=== PATIENT | female | born 1985 | race Caucasian/White ===

== ENCOUNTER 2020-03-02 16:35 | Outpatient (REF) | payer OTHER, SELFPAY ==
--- NOTE | 2020-03-02 | US_ITS ---
EXAMINATION: US RETROPERITONEAL LIMITED (RENAL ONLY) CLINICAL INFORMATION: Renal stone. COMPARISON: Renal ultrasound 09/05/2019 and 06/03/2019. X-ray abdomen KUB 08/21/2019 and 07/31/2019. MRI abdomen 12/29/2015. CT abdomen and pelvis 12/09/2015. TECHNIQUE: Real-time imaging of the kidneys. FINDINGS: RIGHT KIDNEY: 11.1 x 4.5 x 4.8 cm (SAG x AP x TRV). The kidney is normal in size, contour, and echogenicity. Renal cortical thickness is normal. No calculi or focal parenchymal lesions. No hydronephrosis. LEFT KIDNEY: 11.5 x 5.7 x 5.3 cm (SAG x AP x TRV). The kidney is normal in size, contour, and echogenicity. Renal cortical thickness is normal. No calculi or focal parenchymal lesions. No hydronephrosis. US/US renal BI IMPRESSION: Unremarkable renal ultrasound.
== END 2020-03-02 16:36 | disposition home or self-care (01) ==
LOC: HO.US 16:35
PROVIDERS: PCP Internal Medicine; Visit Provider Urology
DX: N20.0 Calculus of kidney (principal)
CPT/HCPCS: 76775

== ENCOUNTER → 2020-05-04 09:56 | Outpatient (BNVA) | payer OTHER, SELFPAY | PROVIDERS: PCP Internal Medicine; Referring Provider Internal Medicine; Visit Provider Urology | DX: Z76.89 Persons encountering health services in other specified circumstances (principal) ==

== ENCOUNTER 2021-05-13 09:00 | Outpatient (RCR) | payer OTHER, SELFPAY ==
--- NOTE | 2021-01-18 16:01 | MHC.SP.ADU ---
Referring provider: Dr. Alexsander Perez Reason for Referral: vocal hoarseness Type of Treatment: 24244 Behavioral and Qualitative Analysis of Voice and Resonance Date of Plan of Treatment: 01/18/21 Onset of Symptoms/Illness: 05/07/19 Medical Diagnosis: Vocal cord nodules Primary Speech Language Diagnosis: R49.0 Dysphonia History Donna is a 35 year old female who was referred for a voice evaluation by her ear, nose, and throat MD, Dr. Alexsander Perez. Donna reported a longstanding history of vocal dysfunction which first began in 2006 when she was with her oldest child. She described vocal hoarseness and pitch breaks at that time but reported that her vocal quality resolved on its own. She then reported that from May-October 2008 she had no voice . Once again, Donna described that her voice eventually returned to its baseline. No medical intervention was received during those instances. Donna was evaluated by Dr. Perez in May 2019 at which time her voice had returned to being raspy, hoarse, and strained. She reported that a laryngoscopy was performed at that time and revealed vocal cord nodules. 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 However, with no longer working at her daycare and beginning exercise and healthy eating habits from June through September 2020, Donna indicated that her vocal function had greatly improved. By the time she returned for a follow-up visit with Dr. Perez on 10/28/20, Donna reported that her vocal function was nearly back to normal . Presently, Donna reported that she feels decreased breath support and that her voice has a monotone quality. Donna described being under physical and emotional stress recently, leading to eating unhealthier foods. Donna described increased GERD and phlegm production, especially in the morning and late at night. She reported the use of frequent coughing/throat clearing to clear phlegm. Donna was prescribed Omeprazole for GERD though denied currently taking the medication as she reported previous success with reducing GERD with diet and exercise. Medical History: Acid Reflux Diabetes Other: Diabetes, history of kidney stones with removal in 2016, GERD, history of gallstones s/p gallbladder removal surgery in 2016` Medication List: Mikal Skelton Recent Hospitalizations: No Respiratory Needs: Room Air Patient Orientation: Alert & Oriented x 4 Social History: Employment Status: Self-Employed Current Living Situation: Pt resides in [place] with her and 2 children. She owns a home daycare which closed during the onset of the COVID-19 pandemic. Donna reported that she will be re-opening soon and hopes to care for primarily infants, which will reduce her vocal use/strain. Assistive Devices in use: None Past Speech Language Therapy: Donna participated in 1-2 voice therapy sessions at [facility] prior to the onset of the COVID-19 pandemic. Donna reported that she completed the vocal function home exercises provided and noticed an improvement in the quality of her voice. Other Therapies Seen in Current Calendar Year: None Other: Donna last received voice therapy in June 2019. Swallowing History: Dysphagia Specific: Within Functional Limits Comments: Pre-eval Risk for Aspiration: None Reported Speech, Language, Cognition difficulties: Voice Quality of Life: Donna reported that as a result of her voice difficulties, she is no longer able to sing while in [employer]. Patient Stated Goal of Speech-Language Therapy: To improve vocal function. Assessment Informal Voice Assessment: Voice Loudness: Normal Voice Nasal Resonance: Normal Voice Oral Resonance: Normal Voice Phonatory-based Quality: Hoarse Voice Pitch: Limited Variation Clinical Impression: During functional conversation and reading tasks, Donna demonstrated slight hoarseness as perceived by this trained but unfamiliar clinician. No instances of pitch breaks/loss of voice were observed during the evaluation. Donna did demonstrate reduced maximum phonation time as expected for her age; Donna was able to prolong a vowel for an average of 5.9 seconds, though the average maximum phonation time for females is 15-25 seconds ([facility]). Donna also demonstrated difficulty with the production of ascending and descending pitch glides as she presented with limited variations in pitch. Donna completed the Voice Handicap Index (VHI), which is a rating scale that uses a 5 point system where 0=never and 4= always, to rate statements about vocal dysfunction and its impact on daily life. The VHI measures the patient's perception of the impact of his or her voice disorder. Based upon Donna's responses, her score of 62 indicates her perception of a moderate/severe voice disorder (scores of 31-60 are associated with a moderate disorder and scores of 60-120 are associated with a severe disorder). Impressions and Recommendations Summary: Donna presents with mild dysphonia characterized by intermittent hoarseness and reduced breath support during vocalization. Donna reported a longstanding history of intermittent dysphonia for the past 10+ years with a recent diagnosis of vocal cord nodules (May 2019). Donna would benefit from skilled voice therapy for teaching of vocal hygiene strategies, vocal function exercises, and compensatory strategies to reduce vocal fatigue in order to improve Donna's vocal quality and quality of life. Impact on Daily Function/Activity Limitations: Daily Activities: Moderate Interpersonal Interactions: Moderate Employment: Moderate Community: Moderate Prognosis for Improvement: Good Comment: Donna is highly motivated to improve her vocal function and its impact on her day to day life. Recommendation for Speech Therapy: Frequency/Duration: 1x/week x6 weeks Time to Reassess: 6 weeks Short Term Goals: Goal # : 1.1 Donna will recall/utilize vocal hygiene strategies with 90% accuracy. Goal Status: New Goal Goal# : 1.2 Donna will complete vocal function exercises with 80% accuracy. Goal Status: New Goal Goal # : 1.3 Donna will recall/utilize compensatory strategies to conserve vocal function, especially while working in her home daycare, with 90% accuracy. Goal Status: New Goal Goal # : 2.1 Donna will complete diaphragmatic breathing exercises with 90% accuracy. Goal Status: New Goal Recommended Referrals to be Discussed with Primary Care Provider: ENT Consult Completion of another laryngoscopy is recommended to assess the current status of pt's vocal cord nodules. Patient Education: Completed: Yes Patient/Caregiver Education: Described Results of Evaluation Patient expressed understanding of evaluation Patient agrees with goals and treatment plan Comments/Barriers to Learning: None It was a pleasure working with Donna. Please do not hesitate to contact me at or [email or web address] with any questions or concerns. Gauge Checker Clinican/Clinical Fellow: No Supervisory Statement: N/A Speech Language Pathologist: Jacy Stahl M.A., CCC-COTTON GINNER HELPER
== END 2021-06-09 13:08 | disposition home or self-care (01) ==
LOC: HO.SH 09:00
PROVIDERS: Visit Provider Otolaryngology
DX: R49.0 Dysphonia (principal)
CPT/HCPCS: 92507; 92524

== ENCOUNTER 2021-05-19 12:27 | Outpatient (REF) | payer OTHER, SELFPAY ==
--- NOTE | ~2021-05-19 | US_ITS ---
EXAMINATION: US RETROPERITONEAL LIMITED (RENAL ONLY) CLINICAL INFORMATION: Personal history of urinary calculi. COMPARISON: Renal ultrasound 03/02/2020 and 09/05/2019. X-ray KUB 08/21/2019 and 07/31/2019. MRI abdomen 12/29/2015. CT abdomen and pelvis 01/07/2013. TECHNIQUE: Real-time imaging of the kidneys. FINDINGS: RIGHT KIDNEY: 10.4 x 5.1 x 5.9 cm (SAG x AP x TRV). The kidney is normal in size, contour, and echogenicity. Renal cortical thickness is normal. No calculi or focal parenchymal lesions. No hydronephrosis. LEFT KIDNEY: 10.9 x 4.9 x 6.1 cm (SAG x AP x TRV). The kidney is normal in size, contour, and echogenicity. Renal cortical thickness is normal. No calculi or focal parenchymal lesions. No hydronephrosis. US/US renal BI IMPRESSION: Normal renal ultrasound.
== END 2021-05-19 12:28 | disposition home or self-care (01) ==
LOC: HO.US 12:27
PROVIDERS: Visit Provider Urology
DX: Z87.442 Personal history of urinary calculi (principal)
CPT/HCPCS: 76775

== ENCOUNTER 2022-05-04 16:33 | Outpatient (REF) | payer OTHER, SELFPAY ==
--- NOTE | ~2022-05-04 | US_ITS ---
EXAMINATION: US RETROPERITONEAL LIMITED (RENAL ONLY) CLINICAL INFORMATION: Calculus of kidney. COMPARISON: Renal ultrasound 05/19/2021 TECHNIQUE: Real-time imaging of the kidneys. FINDINGS: RIGHT KIDNEY: 11.0 x 5.1 x 5.4 cm (SAG x AP x TRV). The kidney is normal in size, contour, and echogenicity. Renal cortical thickness is normal. No focal parenchymal lesions or hydronephrosis. Several echogenic, shadowing nonobstructing right renal calculi are present, the largest measuring 8mm in the right mid kidney. LEFT KIDNEY: 12.3 x 6.0 x 5.9 cm (SAG x AP x TRV). The kidney is normal in size, contour, and echogenicity. Renal cortical thickness is normal. No calculi or focal parenchymal lesions. No hydronephrosis. There is a 3 mm echogenic focus in the left mid kidney without shadowing, possibly a vascular calcification or nonobstructing calculus. US/US renal BI IMPRESSION: Right renal calculi, the largest 8mm. Possible 3 mm left renal calculus. No hydronephrosis.
== END 2022-05-04 16:34 | disposition home or self-care (01) ==
LOC: HO.US 16:33
DX: N20.0 Calculus of kidney (principal)
CPT/HCPCS: 76775

== ENCOUNTER → 2022-05-19 09:47 | Outpatient (BNVA) | payer OTHER, SELFPAY | PROVIDERS: Visit Provider Nurse Practitioner Family | DX: Z13.89 Encounter for screening for other disorder (principal) ==

== ENCOUNTER 2022-05-27 16:35 | Outpatient (REF) | payer OTHER, SELFPAY ==
--- NOTE | ~2022-05-27 | CT_ITS ---
EXAMINATION: CT KIDNEY STONES CLINICAL INFORMATION: Calculus of kidney. Bilateral flank pain. COMPARISON: CT abdomen and pelvis without contrast 12/09/2015. Ultrasound retroperitoneal 05/04/2022. TECHNIQUE: 5 mm thin axial and and reformatted 3 mm thin sagittal and coronal images of the lumbar spine were obtained without contrast. DLP: 443 mGy-cm This CT examination was performed using dose optimization technique as appropriate, variously including the following: Automated exposure control Adjustment of MA and/or KV according to patient size(this includes techniques or standardized protocols for targeted exams where dose is matched to indication/reason for exam; extremities or head. Use of iterative reconstruction techniques. FINDINGS: Lungs: The lung bases are clear. Heart size is normal. Liver, Ducts And Gallbladder: The liver is homogeneous in density, normal contour and density. No focal lesion or intrahepatic ductal dilatation seen. The gallbladder has been surgically removed. Spleen: Unremarkable. Pancreas: Unremarkable. Bilateral Adrenal Glands: Unremarkable. Kidneys And Ureters: Both kidneys are normal size, shape and position. A 2 mm nonobstructive calculi is seen in the lower pole of the left kidney and 2 mm two radiopaque calculi in upper pole of right kidney. No caliectasis or hydronephrosis seen. No caliectasis or hydronephrosis seen. GI Tract: There is scattered stool in the right colon without distention. The rest of the colon is unremarkable. The small bowel loops are unremarkable. The appendix is normal caliber. No inflammatory process or free fluid seen. Lymphovascular Structures: The abdominal aorta is of normal caliber. No abnormal size retroperitoneal lymph nodes seen. Abdominal Wall: There is a small umbilical hernia containing intraperitoneal fat. Pelvis: The bladder is nondistended and appears unremarkable. The uterus is anteverted and appears unremarkable. There is no free fluid. No abnormal pelvic or inguinal lymph nodes. CT/CT kidney stone IMPRESSION: Nonobstructive bilateral radiopaque renal calculi without caliectasis or hydronephrosis. The findings are concordant with ultrasound report of 05/04/2022.
== END 2022-05-27 16:36 | disposition home or self-care (01) ==
LOC: HO.CT 16:35
PROVIDERS: Visit Provider Nurse Practitioner Family
DX: N20.0 Calculus of kidney (principal)
CPT/HCPCS: 74176

== ENCOUNTER → 2022-06-10 14:31 | Outpatient (BNVA) | payer OTHER, SELFPAY | PROVIDERS: Visit Provider Nurse Practitioner Family | DX: Z13.89 Encounter for screening for other disorder (principal) ==

== ENCOUNTER 2022-12-01 16:33 | Outpatient (REF) | payer OTHER, SELFPAY ==
--- NOTE | ~2022-12-01 | US_ITS ---
EXAMINATION: US RETROPERITONEAL LIMITED (RENAL ONLY) CLINICAL INFORMATION: Calculus of kidney. COMPARISON: CT kidney stone 05/27/2022. Ultrasound retroperitoneal limited (renal only) 05/04/2022 and 05/19/2021. X-ray abdomen KUB 08/21/2019 and 07/31/2019. MRI abdomen without contrast 12/29/2015. TECHNIQUE: Real-time imaging of the kidneys. FINDINGS: RIGHT KIDNEY: 11.3 x 5.0 x 6.0 cm (SAG x AP x TRV). The kidney appears unremarkable in size, contour, and echogenicity. Renal cortical thickness is normal. No focal parenchymal lesion or hydronephrosis appreciated. The technologist dalal a 0.4 cm, upper pole subtle focus of increased echogenicity with no associated posterior shadowing. LEFT KIDNEY: 11.8 x 6.7 x 5.6 cm (SAG x AP x TRV). The kidney appears unremarkable in size, contour, and echogenicity. Renal cortical thickness is normal. No focal parenchymal lesion or hydronephrosis appreciated. The technologist dalal a 0.4 cm, mid renal, subtle focus of increased echogenicity with no associated posterior shadowing. US/US renal BI IMPRESSION: The technologist dalal bilateral 0.4 cm foci of increased echogenicity with no associated posterior shadowing.. Differential diagnosis includes, but is not limited to, normal renal sinus fat, nonobstructing stones, etc.
== END 2022-12-01 16:34 | disposition home or self-care (01) ==
LOC: HO.US 16:33
PROVIDERS: Visit Provider Nurse Practitioner Family
DX: N20.0 Calculus of kidney (principal)
CPT/HCPCS: 76775

== ENCOUNTER 2022-12-16 10:27 | Outpatient (AMB) | payer OTHER, SELFPAY ==
--- NOTE | 2022-12-16 10:27 | MHC.OFFVIS ---
Intake Intake Visit Reasons: 6m follow up/US(set) Intake Note: Patient presents for follow up kidney stone/ultrasound (imaging 12/01) Urology Medications: Vitamin B6 Blood Thinner: none Filter Cleaner Required: No Allergies metformin [METFORMIN] Allergy (Intermediate, Verified 12/16/22 11:10) NAUSEA/VOMITING Medication List - Last Reconciled 12/16/22 by KHUSHBU Lovell blood-glucose meter As directed norethindrone-e.estradiol-iron 1-20(5)/1-30(7) /1mg-35mcg (9) (Tri-Legest Fe) 1 tab PO DAILY pen needle, diabetic (BD Ultra-Fine Short Pen Needle) As directed pyridoxine (vitamin B6) 100 mg PO DAILY 90 days sitagliptin phosphate 100 mg PO DAILY HPI HPI Comments History of Present Illness Details Donna is a pleasant 37-year-old female patient. She has a past medical history of gallstones, GERD, nephrolithiasis, polycystic ovarian disease, and low back pain. She is being followed up on today via telehealth regarding her history of nephrolithiasis. When asked patient reports to be doing well. Recent renal imaging results reviewed with the patient today. Bilateral kidneys with no lesions or hydronephrosis noted. Bilateral 4 mm stones noted. When asked she does report intermittent episodes of bilateral flank pain however reports pain to be infrequent. She otherwise denies urinary urgency, urinary frequency, incontinence, dysuria, hematuria, fever, and or chills. Discussed survalliance monitoring versus obtaining CT KUB/KUB for further assessment evaluation. Discussed importance of drinking adequate amount of fluid daily. Patient reports complaince with Vit B6 and adding one ounce of lemon juice to water daily. [facility] Medical History Gallstone GERD (gastroesophageal reflux disease) Gestational diabetes History of renal calculi Low back pain Polycystic ovarian disease Renal calculi Family History Father No problems noted. Mother No problems noted. Paternal Grandfather Diabetes mellitus HTN (hypertension) Paternal Aunt Breast cancer Review of Systems Const Reports as per HPI Eyes Reports no additional complaints ENT Reports no additional complaints Card Reports no additional complaints Resp Reports no additional complaints GI Reports as per HPI Reports as per HPI Musc Reports as per HPI Neuro Reports no additional complaints Psych Reports no additional complaints Endo Reports no additional complaints Physical Exam Const General: cooperative Orientation/consciousness: patient oriented x3 Resp Effort & Inspection: able to speak in complete sentences Neuro General: patient oriented x3 Psych Speech and movement: Clear speech present Attitude: cooperative Thought process: Normal thought process present Thought content: Normal thought content present Insight: Fair insight present (Psych) Judgement: Fair judgement present (Psych) Results Reviewed Results Reviewed: Date of Service: 12/01/22 EXAMINATION: US RETROPERITONEAL LIMITED (RENAL ONLY) FINDINGS: RIGHT KIDNEY: 11.3 x 5.0 x 6.0 cm (SAG x AP x TRV). The kidney appears unremarkable in size, contour, and echogenicity. Renal cortical thickness is normal. No focal parenchymal lesion or hydronephrosis appreciated. The technologist dalal a 0.4 cm, upper pole subtle focus of increased echogenicity with no associated posterior shadowing. LEFT KIDNEY: 11.8 x 6.7 x 5.6 cm (SAG x AP x TRV). The kidney appears unremarkable in size, contour, and echogenicity. Renal cortical thickness is normal. No focal parenchymal lesion or hydronephrosis appreciated. The technologist dalal a 0.4 cm, mid renal, subtle focus of increased echogenicity with no associated posterior shadowing. IMPRESSION: ? The technologist dalal bilateral 0.4 cm foci of increased echogenicity with no associated posterior shadowing.. Differential diagnosis includes, but is not limited to, normal renal sinus fat, nonobstructing stones, etc. Assessment & Plan Assessment & Plan (1) Renal calculi: Code(s): N20.0 - Calculus of kidney Plan Recent renal imaging reviewed with the patient today; bilateral 4 mm non obstructing stones Discussed, instructed, and educated on the importance of drinking adequate amount of fluid daily. Continue vitamin B6 daily Add one once of lemon juice to water daily. Discussed surveillance imaging versus obtaining CT KUB/KUB for further assessment evaluation Renal ultrasound in 6 months. Follow-up in office in 6 months with imaging to be completed prior; or sooner with any issues, concerns, and or questions. Discussed if symptoms continue and or persist to call the office and or seek medical treatment. Orders: Orders US renal BI 6 Months N20.0 - Calculus of kidney Patient Instructions: The patient had an opportunity to ask questions regarding the treatment plan. All questions were answered. Physical exam, labs, and imaging were discussed and reviewed in detail. As well as risks, benefits, and discussion of treatment choices. No major barriers to understanding were identified. The patient expressed understanding and agreement with the above treatment plan. The patient was made aware they should contact our office by phone for worsening of their current condition, the appearance of new symptoms, or with any questions or concerns. Compliance is encouraged with any medications and follow up testing that is ordered. It is a privilege to be allowed the opportunity to participate in? your urological care.? Again, if you have any questions or concerns If you have any questions or concerns please do not hesitate to contact me. The office is [phone]. This note is constructed using voice recognition software. While every effort has been made to ensure accuracy commercial analyst errors may have been included. Yours sincerely, KHUSHBU Lovell Telehealth Telehealth Location of provider rendering services: practice address Location of patient: address on file Patient Identification confirmed using: Name, : Yes Telehealth method: voice only Patient verbally consented to treatment: Yes Patient verbally consented to billing insurance company: Yes Patient informed of any privacy concerns related to visit: Yes Minutes spent on Phone/Video with Pt.: 15 Coding Level of Care Code Tele Est Pt Level 3 (74428) Diagnoses Renal calculi N20.0
== END 2022-12-16 16:08 | disposition home or self-care (01) ==
LOC: HO.HUSH 10:27
PROVIDERS: PCP Internal Medicine; Visit Provider Nurse Practitioner Family
DX: N20.0 Calculus of kidney (principal)
CPT/HCPCS: 99213

== ENCOUNTER → 2022-12-16 10:27 | Outpatient (BNVA) | payer OTHER, SELFPAY | PROVIDERS: PCP Internal Medicine; Visit Provider Nurse Practitioner Family ==

== ENCOUNTER 2023-07-07 16:32 | Outpatient (REF) | payer OTHER, SELFPAY ==
--- NOTE | ~2023-07-07 | US_ITS ---
EXAMINATION: US RETROPERITONEAL LIMITED (RENAL ONLY) CLINICAL INFORMATION: Calculus of kidney. COMPARISON: None available. TECHNIQUE: Renal ultrasound was performed. FINDINGS: RIGHT KIDNEY: 11.2 x 5.1 x 6.7 cm (SAG x AP x TRV). The kidney is normal in size, contour, and echogenicity. Renal cortical thickness is normal. No focal parenchymal lesions. At the upper pole of the right kidney there is a 3 mm echogenic focus seen with twinkle artifact consistent with a nonobstructing calculus, unchanged from prior. No hydronephrosis. LEFT KIDNEY: 10.6 x 4.6 x 4.8 cm (SAG x AP x TRV). The kidney is normal in size, contour, and echogenicity. Renal cortical thickness is normal. No calculi or focal parenchymal lesions. No hydronephrosis. US/US renal BI IMPRESSION: Nonobstructing 3 mm right upper pole renal calculus.
== END 2023-07-07 16:33 | disposition home or self-care (01) ==
LOC: HO.US 16:32
PROVIDERS: PCP Registered Nurse; Visit Provider Nurse Practitioner Family
DX: N20.0 Calculus of kidney (principal)
CPT/HCPCS: 76775

== ENCOUNTER 2023-11-14 17:00 | Outpatient (REF) | payer OTHER, SELFPAY ==
--- NOTE | ~2023-11-14 | CT_ITS ---
EXAMINATION: CT ABDOMEN AND PELVIS WITHOUT CONTRAST CLINICAL INFORMATION: Renal calculus. COMPARISON: CT scans dating between May 27, 2022 and December 04, 2009. TECHNIQUE: Multidetector volumetric imaging was performed from the superior aspect of the liver through the pubic symphysis. Sagittal and coronal reformatted images were obtained on the technologist's workstation. This CT examination was performed using dose optimization techniques as appropriate, variously including the following: *Automated exposure control *Adjustment of mA and/or kV according to patient size (this includes techniques or standardized protocols for targeted exams where dose is matched to indication/reason for exam; i.e. extremities or head) *Use of iterative reconstruction technique DLP: 0.35 mGy-cm FINDINGS: LUNG BASES: The lung bases appear clear, with no evidence of inflammation or nodules. LIVER, GALLBLADDER, AND BILIARY TREE: The liver appears unremarkable in size, shape, and attenuation. No focal hepatic lesion or biliary ductal dilatation is appreciated. Status post cholecystectomy. PANCREAS: Unremarkable SPLEEN: Unremarkable ADRENAL GLANDS: Unremarkable KIDNEYS AND URETERS: Bilateral, 2 mm or less, nonobstructing renal collecting system and/or renal papillary calcifications. No evidence of hydronephrosis or hydroureter on either side. The kidneys otherwise appear unremarkable in size, shape, and attenuation. BLADDER: Unremarkable GASTROINTESTINAL TRACT: The small and large bowel appear unremarkable. No diverticulosis. Normal-appearing distal ileum and vermiform appendix. ABDOMINAL WALL: No significant hernia is appreciated. LYMPH NODES: No evidence of adenopathy by size criteria. VASCULAR: Unremarkable PELVIC VISCERA: Unremarkable OSSEOUS STRUCTURES: Unremarkable CT/CT kidney stone IMPRESSION: Bilateral, 2 mm or less, nonobstructing renal collecting system and/or renal papillary calcifications. No evidence of hydronephrosis or hydroureter on either side. Electronically signed by: Roberto Vale MD 12/31/2023 01:03 PM EDT
== END 2023-11-14 17:01 | disposition home or self-care (01) ==
LOC: HO.CT 17:00
PROVIDERS: Visit Provider Nurse Practitioner Family
DX: N20.0 Calculus of kidney (principal); R10.9 Unspecified abdominal pain
CPT/HCPCS: 74176

== ENCOUNTER 2023-12-01 11:12 | Outpatient (AMB) | payer OTHER, SELFPAY ==
--- NOTE | 2023-12-01 11:35 | A.OFFVIS_ITS ---
Intake Visit Reasons: 6M US(CT 11/13) Allergies metformin [METFORMIN] Allergy (Intermediate, Verified 12/16/22 11:10) NAUSEA/VOMITING HPI Comments Details: Donna is a pleasant female. She is a patient of Dr. Farias. She seen for the following urologic conditions - nephrolithiasis Reviewed CT scan imaging 2 punctate stones on right side upper pole Has been having occasional flank plain bilateral Naprosyn 500 mg provided to use as needed Encouraged lemon water 70-80 oz per day Remains compliant with B6 12 month follow-up imaging PENDING SALE TO [facility] Medical History Gallstone GERD (gastroesophageal reflux disease) Gestational diabetes History of renal calculi Low back pain Polycystic ovarian disease Renal calculi Family History Father No problems noted. Mother No problems noted. Paternal Grandfather Diabetes mellitus HTN (hypertension) Paternal Aunt Breast cancer Review of Systems Const Denies chills and Denies fever(s) Card Reports no additional complaints and Denies syncope Resp Denies cough GI Denies abdominal pain and Denies heartburn Reports as per HPI and Denies change in libido Neuro Denies syncope Psych Denies change in libido Endo Denies change in libido Physical Exam Const General: cooperative, healthy appearing, comfortable and no acute distress Orientation/consciousness: patient oriented x3 HEENT Face and sinus: Yes normal facial exam Mouth: moist mucous membranes Neck Neck: Yes normal visual inspection, Yes full ROM and Yes trachea midline Chest Chest palpation & inspection: normal inspection of the chest Resp Effort & Inspection: normal respiratory effort, able to speak in complete sentences and no respiratory distress GI Inspection: Yes normal to inspection Back/Spine/Pelvis Cervical Spine: normal cervical lordosis Thoracic/Lumbar Spine: thoracic and lumbar spine normal to inspection Skin General skin exam: no rashes or lesions noted Neuro General: patient oriented x3, gait normal, tone normal and moves all extremities Extrem General: Yes normal to inspection and Yes capillary refill normal Assessment & Plan Assessment & Plan (1) Renal calculi: Code(s): N20.0 - Calculus of kidney Category: Medical Plan Twelve month follow-up renal imaging Orders: Orders US renal BI 12 Months N20.0 - Calculus of kidney Medications: New naproxen (Naprosyn) To use with kidney stone pain 500 mg PO Q12H PRN 30 tabs 0RF pain 30 days N20.0 - Calculus of kidney Patient Instructions: Imaging studies, laboratory and physical exam results were discussed and reviewed in detail. No major barriers to patient understanding were identified. An opportunity to ask questions regarding the treatment plan was provided. All questions were answered. The patient expressed understanding and agreement with the above treatment plan. The patient is aware they should contact our office by phone for worsening of their current condition or the appearance of new urologic symptoms. Compliance is encouraged with any medications and followup testing that is ordered. It is a privilege to participate in the urologic care of your patient. If you have any questions or concerns regarding treatment for the above conditions, or other urologic issues, please do not hesitate to contact me. The office telephone contact is [phone]. This note is constructed using voice recognition software. While every effort has been made to ensure accuracy senior water/wastewater engineer errors may have been included. Yours sincerely, Dr Ridge Madrigal MD, DINA [facility] - Urology Providers of Expert, Compassionate Care for the Genitourinary System Coding Level of Care Code Est Pt Level 4 (87169) Diagnoses Renal calculi N20.0
== END 2023-12-01 11:52 | disposition home or self-care (01) ==
PROVIDERS: PCP Registered Nurse; Visit Provider Urology
DX: N20.0 Calculus of kidney (principal)
CPT/HCPCS: 99214

== ENCOUNTER → 2023-12-01 11:12 | Outpatient (BNVA) | payer OTHER, SELFPAY | PROVIDERS: PCP Registered Nurse; Visit Provider Urology | DX: N20.0 Calculus of kidney (principal) | CPT/HCPCS: 99212 ==

== ENCOUNTER 2024-11-28 10:24 | Outpatient (REF) | payer OTHER, SELFPAY ==
--- NOTE | ~2024-11-28 | US_ITS ---
CLINICAL HISTORY: N20.0 - Calculus of kidney US of kidneys Comparison: US/ND/SR - US RENAL BI - 07/07/23 17:06 EST Findings: Right kidney is normal in size, echogenicity and morphology, 11.7 cm in length. 3 mm calculus in the upper pole, no hydronephrosis or focal lesion. Left kidney is normal in size, echogenicity and morphology, 12.5 cm in length. 3 mm calculus in the lower pole, mild pelviectasis, no calyceal dilatation. No focal lesion. Limited color Doppler demonstrates unremarkable bilateral blood flow. Impression: Nonobstructing bilateral nephrolithiasis. This document has been electronically signed by: Nohelia Oh MD on 11/28/2024 15:01:07
== END 2024-11-28 10:25 | disposition home or self-care (01) ==
LOC: HO.US 10:24
PROVIDERS: Visit Provider Nurse Practitioner Family
DX: N20.0 Calculus of kidney (principal)
CPT/HCPCS: 76775

== ENCOUNTER → 2024-11-28 10:26 | Outpatient (BNV) | payer OTHER, SELFPAY | PROVIDERS: Visit Provider Radiology Diagnostic Radiology | DX: N20.0 Calculus of kidney (principal) | CPT/HCPCS: 76775 ==

== ENCOUNTER 2024-12-06 14:20 | Outpatient (AMB) | payer MEDICAID, SELFPAY ==
--- NOTE | 2024-12-06 14:24 | MHC.OFFVIS ---
Intake Visit Reasons: 1y/US Intake Note: Patient presents for 1YR FOLLOW UP Urology Medications: Vitamin B6, NAPROXEN Blood Thinner: none US DONE 11/28/24 Supervisor [employer] Required: No Accompanied by: Self / Same As Patient Allergies metformin (METFORMIN) Allergy (Intermediate, Verified 12/06/24 14:26) NAUSEA/VOMITING HPI Comments Details: Donna is a pleasant female. She is a patient of Dr. Farias. She seen for the following urologic conditions - nephrolithiasis Stable imaging Encourage vitamin B6 and water intake Refilled Naprosyn Continue yearly surveillance Nephrolithiasis Imagin - CT scan 2 punctate stones on right side upper pole - 11/22 renal ultrasound bilateral punctate stones Has been having occasional flank plain bilateral Treatment - Naprosyn 500 mg provided to use as needed - Encouraged lemon water 70-80 oz per day - Remains compliant with B6 12 month follow-up imaging [facility] Medical History Gallstone GERD (gastroesophageal reflux disease) Gestational diabetes History of renal calculi Low back pain Polycystic ovarian disease Renal calculi Family History Father No problems noted. Mother No problems noted. Paternal Grandfather Diabetes mellitus HTN (hypertension) Paternal Aunt Breast cancer Review of Systems Const Denies chills and Denies fever(s) Card Reports no additional complaints and Denies syncope Resp Denies cough GI Denies abdominal pain and Denies heartburn Reports as per HPI and Denies change in libido Neuro Denies syncope Psych Denies change in libido Endo Denies change in libido Physical Exam Const General: cooperative, healthy appearing, comfortable and no acute distress Orientation/consciousness: patient oriented x3 HEENT Face and sinus: Yes normal facial exam Mouth: moist mucous membranes Neck Neck: Yes normal visual inspection, Yes full ROM and Yes trachea midline Chest Chest palpation & inspection: normal inspection of the chest Resp Effort & Inspection: normal respiratory effort, able to speak in complete sentences and no respiratory distress GI Inspection: Yes normal to inspection Back/Spine/Pelvis Cervical Spine: normal cervical lordosis Thoracic/Lumbar Spine: thoracic and lumbar spine normal to inspection Skin General skin exam: no rashes or lesions noted Neuro General: patient oriented x3, gait normal, tone normal and moves all extremities Extrem General: Yes normal to inspection and Yes capillary refill normal Assessment & Plan Assessment & Plan (1) Renal calculi: Code(s): N20.0 - Calculus of kidney Category: Medical Plan Twelve month follow-up renal ultrasound Orders: Orders US renal BI 12 Months N20.0 - Calculus of kidney Medications: Refilled naproxen (Naprosyn) To use with kidney stone pain 500 mg PO Q12H PRN 30 tabs 0RF pain 30 days N20.0 - Calculus of kidney Patient Instructions: This note is constructed using voice recognition software. While every effort has been made to ensure accuracy track inspector errors may have been included. Imaging studies, laboratory and physical exam results were discussed and reviewed in detail. No major barriers to patient understanding were identified. An opportunity to ask questions regarding the treatment plan was provided. All questions were answered. The patient expressed understanding and agreement with the above treatment plan. The patient is aware they should contact our office by phone for worsening of their current condition or the appearance of new urologic symptoms. Compliance is encouraged with any medications and followup testing that is ordered. It is a privilege to participate in the urologic care of your patient. If you have any questions or concerns regarding treatment for the above conditions, or other urologic issues, please do not hesitate to contact me. The office telephone contact is [phone]. Sincerely, Dr Ridge Madrigal MD, DINA [facility] - Urology Compassionate Specialist Care for the Genitourinary System Coding Level of Care Code Est Pt Level 4 (76502) Diagnoses Renal calculi N20.0
== END 2024-12-06 14:42 | disposition home or self-care (01) ==
LOC: HO.HUSH 14:21
PROVIDERS: PCP Registered Nurse; Visit Provider Urology
DX: N20.0 Calculus of kidney (principal)
CPT/HCPCS: 99214

== ENCOUNTER → 2024-12-06 14:20 | Outpatient (BNVA) | payer MEDICAID, SELFPAY | PROVIDERS: PCP Registered Nurse; Visit Provider Urology | DX: N20.0 Calculus of kidney (principal) | CPT/HCPCS: 99212 ==